=== PATIENT | female | born 1975 | race African-American/Black ===

== ENCOUNTER 2017-07-05 05:06 | Emergency (ER) | payer SELFPAY ==
[2017-07-05] MEDS ORDERED: LEVALBUTEROL 1.25 MG/3 ML NEB ONE (05:11)
[2017-07-05] MEDS ORDERED: predniSONE 20 MG TAB ONE (05:11)
--- NOTE | 2017-07-05 05:12 | EDPHYS ---
Physician Documentation [facility] Name: Angelique Alvarez Age: 41 yrs Sex: Female : 1975 Arrival Date: 07/05/2017 Time: 05:07 Bed 6 Private MD: ED Physician Aristeo Toure HPI: 07/05 05:14 This 41 yrs old Black Female presents to ER via EMS with complaints of Respiratory kdr Distress. 05:14 The patient has shortness of breath at rest, with light activity. Onset: The kdr symptoms/episode began/occurred suddenly, today. Duration: The symptoms are intermittent, with no pattern. The patient's shortness of breath is aggravated by coughing, exertion, light activity, is alleviated by nothing. Associated signs and symptoms: Pertinent positives: productive cough, vomiting, Post tussive vomiting. Severity of symptoms: At their worst the symptoms were mild in the emergency department the symptoms have resolved. The patient has experienced similar episodes in the past, several times. The patient has not recently seen a physician. EMS was called to the patient's residence earlier but she refused transport after receiving a neb treatment. She states that she awoke from sleep with recurrence of her coughing and SOB. 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 - Social history:: Smoking status: Patient uses tobacco products, denies chronic smoking, but will smoke occasionally. ROS: 05:14 Constitutional: Negative for fever, chills, and weight loss, Eyes: Negative for injury, kdr pain, redness, and discharge, ENT: Negative for injury, pain, and discharge, Neck: Negative for injury, pain, and swelling, Cardiovascular: Negative for chest pain, palpitations, and edema, Abdomen/GI: Negative for abdominal pain, nausea, vomiting, diarrhea, and constipation, Back: Negative for injury and pain, : Negative for injury, bleeding, discharge, and swelling, MS/Extremity: Negative for injury and deformity, Skin: Negative for injury, rash, and discoloration, Neuro: Negative for headache, weakness, numbness, tingling, and seizure activity. Psych: Negative for depression, anxiety, suicide ideation, homicidal ideation, and hallucinations, Allergy/Immunology: Negative for hives, rash, and allergies, Endocrine: Negative for neck swelling, polydipsia, polyuria, polyphagia, and marked weight changes, Hematologic/Lymphatic: Negative for swollen nodes, abnormal bleeding, and unusual bruising. 05:14 Respiratory: Positive for cough, with clear sputum, dyspnea on exertion, shortness of breath, on exertion. wheezing, inspiratory, expiratory. Exam: 05:14 Constitutional: This is a well developed, well nourished patient who is awake, alert, kdr and in no acute distress. Head/Face: Normocephalic, atraumatic. Eyes: Pupils equal round and reactive to light, extra-ocular motions intact. Lids and lashes normal. Conjunctiva and sclera are non-icteric and not injected. Cornea within normal limits. Periorbital areas with no swelling, redness, or edema. Neck: Trachea midline, no thyromegaly or masses palpated, and no cervical lymphadenopathy. Supple, full range of motion without nuchal rigidity, or vertebral point tenderness. No Meningismus. Chest/axilla: Normal chest wall appearance and motion. Nontender with no deformity. No lesions are appreciated. Cardiovascular: Regular rate and rhythm with a normal S1 and S2. No gallops, murmurs, or rubs. Normal PMI, no JVD. No pulse deficits. Abdomen/GI: Soft, non-tender, with normal bowel sounds. No distension or tympany. No guarding or rebound. No evidence of tenderness throughout. Back: No spinal tenderness. No costovertebral tenderness. Full range of motion. Skin: Warm, dry with normal turgor. Normal color with no rashes, no lesions, and no evidence of cellulitis. MS/ Extremity: Pulses equal, no cyanosis. Neurovascular intact. Full, normal range of motion. Neuro: Awake and alert, GCS 15, oriented to person, place, time, and situation. Cranial nerves II-XII grossly intact. Motor strength 5/5 in all extremities. Sensory grossly intact. Cerebellar exam normal. Normal gait. Psych: Awake, alert, with orientation to person, place and time. Behavior, mood, and affect are within normal limits. 05:14 Respiratory: the patient does not display signs of respiratory distress, Respirations: normal, Breath sounds: wheezing: that is mild, is scattered, is heard diffusely, Respiratory rate: 20 Vital Signs: 04:55 BP 148 / 108; Pulse 89; Resp 20; Temp 97.8(O); Pulse Ox 100% on R/A; Weight 52.16 kg fc (R); Height 5 ft. 2 in. (157.48 cm) (R); Pain 4/10; 05:50 BP 149 / 95; Pulse 80; Resp 18; Temp 97.7(O); Pulse Ox 100% on R/A; Pain 0/10; ea 04:55 Body Mass Index 21.03 (52.16 kg, 157.48 cm) fc MDM: 05:11 Patient medically screened. kdr 05:14 Data reviewed: vital signs, nurses notes. Counseling: I had a detailed discussion with kdr the patient and/or guardian regarding: the historical points, exam findings, and any diagnostic results supporting the discharge/admit diagnosis, the need for outpatient follow up. Administered Medications: 05:20 Drug: predniSONE 40 mg Route: PO; ea 05:45 Follow up: Response: No adverse reaction; Wheezing diminished ea 05:21 Drug: Xopenex (3) 1.25 mg Route: Inhalation; ea Disposition: 07/05/17 05:11 Discharged to Home. Impression: Shortness of breath, Asthma, Cough. - Condition is Stable. - Discharge Instructions: Shortness of Breath, [id number], Asthma, Adult, [id number], Cough, Adult, Hytz-hu-Nnem, Asthma Attack Prevention. - Prescriptions for Albuterol Sulfate 2.5 mg /3 mL (0.083 %) Inhalation Solution for Nebulization - inhale 1 unit by NEBULIZATION route every 8 hours As needed; 1 box. Medrol (Jeovanny) 4 mg Oral Tablets, Dose Pack - take 1 tablet by ORAL route as directed - follow package instructions; 1 packet. Albuterol Sulfate 90 mcg/actuation - inhale 1-2 puff by INHALATION route every 4-6 hours; 1 Inhaler. - Medication Reconciliation Form, Thank You Letter, Antibiotic Education, Prescription Opioid Use form. - Follow up: Private Physician; When: 2 - 3 days; Reason: If symptoms return, Further diagnostic work-up, Recheck today's complaints, Continuance of care, Re-evaluation by your physician. - Problem is an acute exacerbation. - Symptoms have improved. Signatures: Aristeo Toure MD MD kdr Chretien, Felicia RN RN Connie Lagos RN RN ea
--- NOTE | 2017-07-05 05:12 | ER ---
Nurse's Notes [facility] Name: Angelique Alvarez Age: 41 yrs Sex: Female : 1975 Arrival Date: 07/05/2017 Time: 05:07 Bed 6 Private MD: Diagnosis: Shortness of breath;Asthma;Cough Presentation: 07/05 04:55 Presenting complaint: EMS states: that pt is having resp distress and wheezing to all fc lobes. Pt having cough and congestion with clear sputum. Upon their arrival to her home sats were 92% on room air. Pt is currently out of her medications (Inhaler and Nebs). Transition of care: patient was not received from another setting of care. Onset of symptoms was July 05, 2017. Initial Sepsis Screen: Does the patient meet any 2 criteria? No. Patient's initial sepsis screen is negative. Does the patient have a suspected source of infection? No. Patient's initial sepsis screen is negative. Care prior to arrival: Medication(s) given: Albuterol Neb x 1, Atrovent Neb x 1. 04:55 Method Of Arrival: EMS: [facility] 04:55 Acuity: JAMES 4 Triage Assessment: 05:09 General: Appears uncomfortable, Behavior is calm, cooperative, appropriate for age. ea Respiratory: Reports shortness of breath cough that is productive, Onset: The symptoms/episode began/occurred this morning, the patient has mild shortness of breath. 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 - Social history:: Smoking status: Patient uses tobacco products, denies chronic smoking, but will smoke occasionally. Screenin:09 Fall Risk None identified. ea 05:11 Abuse screen: Denies threats or abuse. Nutritional screening: No deficits noted. fc Tuberculosis screening: No symptoms or risk factors identified. Assessment: 05:09 General: Appears uncomfortable, Behavior is calm, cooperative, appropriate for age. ea Pain: Complains of pain in left lateral posterior chest and right lateral posterior chest Pain currently is 4 out of 10 on a pain scale. Quality of pain is described as aching, Aggravated by coughing. Neuro: Level of Consciousness is awake, alert, obeys commands, Oriented to person, place, time, situation. Cardiovascular: Heart tones S1 S2 present Patient's skin is warm and dry. Respiratory: Airway is patent Respiratory effort is labored, Respiratory pattern is regular, symmetrical, Breath sounds with wheezes bilaterally. in right upper lobe, left upper lobe, left posterior upper lobe, right posterior upper lobe, left posterior lower lobe and right posterior middle lobe. Respiratory: Parent/caregiver reports the patient having cough that is productive. GI: No signs and/or symptoms were reported involving the gastrointestinal system. : No signs and/or symptoms were reported regarding the genitourinary system. EENT: EENT: No signs and/or symptoms were reported regarding the EENT system. Derm: Skin is intact, Skin is dry, Skin is normal, Skin temperature is warm. Musculoskeletal: Circulation, motion, and sensation intact. 05:49 Reassessment: Patient and/or family updated on plan of care and expected duration. Pain ea level reassessed. Patient is alert, oriented x 3, equal unlabored respirations, skin warm/dry/pink. Discharge instructions given to patient verbalized the understanding of instruction. Patient states feeling better. Patient states symptoms have improved. Vital Signs: 04:55 BP 148 / 108; Pulse 89; Resp 20; Temp 97.8(O); Pulse Ox 100% on R/A; Weight 52.16 kg fc (R); Height 5 ft. 2 in. (157.48 cm) (R); Pain 4/10; 05:50 BP 149 / 95; Pulse 80; Resp 18; Temp 97.7(O); Pulse Ox 100% on R/A; Pain 0/10; ea 04:55 Body Mass Index 21.03 (52.16 kg, 157.48 cm) ED Course: 04:55 Arm band placed on Patient placed in an exam room, on a stretcher. 05:07 Patient arrived in ED. fc 05:08 Connie Elise RN is Primary Nurse. ea 05:09 Aristeo Toure MD is Attending Physician. kdr 05:10 Triage completed. fc 05:11 Patient has correct armband on for positive identification. Bed in low position. Call light in reach. Side rails up X 1. Pulse ox on. NIBP on. 05:11 No provider procedures requiring assistance completed. fc 05:52 Patient did not have IV access during this emergency room visit. ea Administered Medications: 05:20 Drug: predniSONE 40 mg Route: PO; ea 05:45 Follow up: Response: No adverse reaction; Wheezing diminished ea 05:21 Drug: Xopenex (3) 1.25 mg Route: Inhalation; ea Outcome: 05:11 Discharge ordered by . kdr 05:51 Discharged to home ambulatory. ea 05:51 Condition: improved 05:51 Discharge instructions given to patient, Instructed on discharge instructions, follow up and referral plans. medication usage, Demonstrated understanding of instructions, follow-up care, medications, Prescriptions given X 3. 05:53 Patient left the ED. ea Signatures: Aristeo Toure MD MD [facility] Anne Hudson RN RN Connie Elise RN RN ea Corrections: (The following items were deleted from the chart) 05:17 05:09 Musculoskeletal: Range of motion: intact in all extremities, ea ea
[2017-07-05 06:05] VITALS: BP 149/95; TEMP 97.7; O2SAT 100
== END 2017-07-05 05:53 | disposition home or self-care (01) ==
LOC: ER 05:06
DX: J45.909 Unspecified asthma, uncomplicated (principal); R05 Cough; J44.9 Chronic obstructive pulmonary disease, unspecified; Z72.0 Tobacco use; Z88.0 Allergy status to penicillin
CPT/HCPCS: 99284; J7512

== ENCOUNTER 2017-08-04 10:04 | Observation (INO) | payer SELFPAY ==
[~2017-08-04 10:04] MED LIST: ALBUTEROL 2.5 MG/3 ML NEB SOL ONE; IPRATROPIUM BROM 0.5MG/2.5ML ONE; METHYLPREDNISOLONE 125 MG INJ ONE
[2017-08-04] MEDS ORDERED: Magnesium Sulfate 2gm IVPB 2 G/50 ML BAG IV ONE (10:09)
[2017-08-04] MEDS ORDERED: NA CHLORIDE 0.9% 1,000 ML ONE (10:10)
[2017-08-04 10:27] LABS: Absolute Lymphocytes (CBC) 1.8 K/uL (0.7-4.9); Absolute Monocytes 0.8 K/uL (0.1-1.3); Absolute Neutrophil 2.2 K/uL (1.8-8.0); Basophils % 0.8 % (0-1.3); Eosinophils % 14.2 % (0-4.4); Hematocrit 36.1 % (36.0-45.0); Lymphocytes % 31.2 % (15.3-44.8); MCH 27.7 pg (27.0-35.0); MCV 87.2 fL (80-100); Monocytes % 14.7 % (3.3-12.3); RBC Red Blood Cell Count 4.14 M/uL (3.86-4.86)
[2017-08-04 10:34] LABS: Bicarbonate 26 mEq/L (21-31); Glucose Level 94 mg/dL (65-120); Potassium 4.1 mEq/L (3.6-5.0); Sodium Level 139 mEq/L (135-145)
[2017-08-04 10:35] LABS: BUN Blood Urea Nitrogen 8 mg/dL (6-20)
--- NOTE | 2017-08-04 11:19 | RAD REPORT ---
EXAM DESCRIPTION: RAD - Chest Single View - 08/04/2017 10:39 am CLINICAL HISTORY: Dyspnea COMPARISON: None. TECHNIQUE: AP portable chest image was obtained 1029 hours . FINDINGS: No peripheral mass, consolidation or failure. No peribronchial thickening. Minimal promine nce of the interstitial markings noted. Baseline for the patient is unknown. Heart and vasculature ar e normal. No measurable pleural effusion and no pneumothorax. No acute bone findings seen. Patient bynum s a pronounced thoracolumbar scoliosis. No acute aortic findings suspected. IMPRESSION: No focal infiltrate, mass or failure finding. Mild prominence of the interstitial markings present suspected to be baseline for the patient.
--- NOTE | 2017-08-04 11:39 | EDPHYS ---
Physician Documentation [facility] Name: Angelique Alvarez Age: 41 yrs Sex: Female : 1975 Arrival Date: 08/04/2017 Time: 10:07 Bed 5 Private MD: ED Physician Aristeo Toure HPI: 08/04 11:31 This 41 yrs old Black Female presents to ER via EMS with complaints of Shortness Of jr8 Breath. 11:31 The patient has shortness of breath at rest. Onset: The symptoms/episode began/occurred jr8 acutely, yesterday, and became worse and became persistent. Duration: The symptoms are continuous. The patient's shortness of breath is aggravated by talking, walking. Associated signs and symptoms: The patient has no apparent associated signs or symptoms. Severity of symptoms: At their worst the symptoms were moderate in the emergency department the symptoms are unchanged. The patient has experienced similar episodes in the past, a few times. The patient has not recently seen a physician. 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 - Ebola Screening: : Patient denies travel to an Ebola-affected area in the 21 days before illness onset. - Social history:: Smoking status: . ROS: 11:31 Eyes: Negative for injury, pain, redness, and discharge, ENT: Negative for injury, jr8 pain, and discharge, Neck: Negative for injury, pain, and swelling, Cardiovascular: Negative for chest pain, palpitations, and edema, Abdomen/GI: Negative for abdominal pain, nausea, vomiting, diarrhea, and constipation, Back: Negative for injury and pain, MS/Extremity: Negative for injury and deformity, Skin: Negative for injury, rash, and discoloration, Neuro: Negative for headache, weakness, numbness, tingling, and seizure. 11:31 Respiratory: Positive for cough, dyspnea on exertion, shortness of breath, wheezing. Exam: 11:31 Eyes: Pupils equal round and reactive to light, extra-ocular motions intact. Lids and jr8 lashes normal. Conjunctiva and sclera are non-icteric and not injected. Cornea within normal limits. Periorbital areas with no swelling, redness, or edema. ENT: Nares patent. No nasal discharge, no septal abnormalities noted. Tympanic membranes are normal and external auditory canals are clear. Oropharynx with no redness, swelling, or masses, exudates, or evidence of obstruction, uvula midline. Mucous membranes moist. Neck: Trachea midline, no thyromegaly or masses palpated, and no cervical lymphadenopathy. Supple, full range of motion without nuchal rigidity, or vertebral point tenderness. No Meningismus. Abdomen/GI: Soft, non-tender, with normal bowel sounds. No distension or tympany. No guarding or rebound. No evidence of tenderness throughout. Back: No spinal tenderness. No costovertebral tenderness. Full range of motion. Skin: Warm, dry with normal turgor. Normal color with no rashes, no lesions, and no evidence of cellulitis. MS/ Extremity: Pulses equal, no cyanosis. Neurovascular intact. Full, normal range of motion. Neuro: Awake and alert, GCS 15, oriented to person, place, time, and situation. Cranial nerves II-XII grossly intact. Motor strength 5/5 in all extremities. Sensory grossly intact. Cerebellar exam normal. Normal gait. 11:31 Cardiovascular: Rate: tachycardic, Rhythm: regular, Pulses: Pulses are 2+ in right radial artery and left radial artery. Heart sounds: normal, normal S1and S2, no S3 or S4, no murmur, no rub, no gallop, Edema: is not appreciated, JVD: is not appreciated. 11:31 Respiratory: moderate respiratory distress is noted, Respirations: labored breathing, accessory muscle usage, tachypnea, Breath sounds: wheezing: expiratory that is moderate, is heard diffusely. Vital Signs: 10:10 BP 161 / 102; Pulse 115; Resp 24; Temp 97.8(TE); Pulse Ox 99% on Nebulizer Mask; tw2 10:14 BP 177 / 98; Pulse 113; Resp 24; Pulse Ox 99% on BiPAP; tw2 10:38 BP 157 / 98; Pulse 100; Resp 24; Pulse Ox 100% on 60% BiPAP; ae1 11:39 BP 139 / 92; Pulse 106; Resp 26; Pulse Ox 100% on 60% BiPAP; ae1 12:20 BP 142 / 92; Pulse 93; Resp 22; Pulse Ox 100% on 60% BiPAP; ae1 12:54 BP 136 / 95; Pulse 88; Resp 15; Pulse Ox 100% on 60% BiPAP; ae1 10:14 12/6 rate 14, FIO2 -60 tw2 MDM: 10:08 Patient medically screened. 8 11:37 Data reviewed: vital signs, nurses notes, lab test result(s), radiologic studies, plain jr8 films, and as a result, I will admit patient. Data interpreted: Pulse oximetry: on room air is 100 %. Interpretation: normal. Counseling: I had a detailed discussion with the patient and/or guardian regarding: the historical points, exam findings, and any diagnostic results supporting the discharge/admit diagnosis, lab results, radiology results, the need for further work-up and treatment in the hospital. 08/04 10:09 Order name: CBC with Diff; Complete Time: 10: [facility] 08/04 10:09 Order name: Basic Metabolic Panel; Complete Time: [facility] 08/04 10:09 Order name: XRAY Chest (1 view); Complete Time: 11:28 [facility] 08/04 10:09 Order name: BIPAP [facility] 08/04 11:23 Order name: Urine Dipstick--Ancillary (enter results); Complete Time: 12:06 08/04 11:23 Order name: Urine --Ancillary (enter results); Complete Time: 12:06 08/04 10:08 Order name: IV; Complete Time: 10:10 [facility] Administered Medications: 10:08 Drug: SOLU-Medrol 125 mg Route: IVP; Site: right antecubital; tw2 12:22 Follow up: Response: No adverse reaction ae1 10:08 Drug: Albuterol - atroVENT (3:1) (2.5 mg - 0.5 mg) 3 ml Route: Nebulizer; tw2 12:22 Follow up: Response: Wheezing diminished ae1 10:12 Drug: NS 0.9% 1000 ml Route: IV; Rate: 100 ml/hr; Site: right antecubital; ae1 13:00 Follow up: IV Status: Infusion continued upon admission ae1 10:12 Drug: Magnesium Sulfate 2 grams Route: IVPB; Infused Over: 2 hrs; Site: right ae1 antecubital; 12:22 Follow up: IV Status: Completed infusion ae1 Disposition: 16:49 Co-signature as Attending Physician, Aristeo Toure MD I agree with the assessment and kdr plan of care. Disposition: 08/04/17 11:38 Hospitalization ordered by Samia Pennington for Observation. Preliminary diagnosis is Chronic obstructive pulmonary disease with (acute) exacerbation. - Bed requested for Telemetry/MedSurg (observation). - Status is Observation. ae1 - Condition is Stable. - Problem is new. - Symptoms have improved. UTI on Admission? No Signatures: Dispatcher [employer] EDMS Dia Marcano Kevin, MD MD [facility] Dereje Valdes PA PA jr8 Maryan Wan RN RN tw2 Guille Hastings RN RN ae1 Corrections: (The following items were deleted from the chart) 12:37 11:38 Hospitalization Ordered by Samia Pennington MD for Observation. Preliminary bd diagnosis is Chronic obstructive pulmonary disease with (acute) exacerbation. Bed requested for Telemetry/MedSurg (observation). Status is Observation. Condition is Stable. Problem is new. Symptoms have improved. UTI on Admission? No. jr8 13:15 12:37 08/04/2017 11:38 Hospitalization Ordered by Samia Pennington MD for Observation. ae1 Preliminary diagnosis is Chronic obstructive pulmonary disease with (acute) exacerbation. Bed requested for Telemetry/MedSurg (observation). Status is Observation. Condition is Stable. Problem is new. Symptoms have improved. UTI on Admission? No. bd
--- NOTE | 2017-08-04 11:39 | ER ---
Nurse's Notes [facility] Name: Angelique Alvarez Age: 41 yrs Sex: Female : 1975 Arrival Date: 08/04/2017 Time: 10:07 Bed 5 Private MD: Diagnosis: Chronic obstructive pulmonary disease with (acute) exacerbation Presentation: 08/04 10:14 Risk Assessment: Do you want to hurt yourself or someone else? Patient reports no tw2 desire to harm self or others. Initial Sepsis Screen: Does the patient meet any 2 criteria? RR > 20 per min. Does the patient have a suspected source of infection? No. Patient's initial sepsis screen is negative. Care prior to arrival: Medication(s) given: Albuterol Neb x 1, Oxygen administered. via nasal cannula, at 3L. 10:17 Presenting complaint: EMS states: pt c/o SOB out of prednisone, has inhaler, started tw2 last night. Transition of care: patient was not received from another setting of care. Onset of symptoms was August 04, 2017. 10:17 Method Of Arrival: EMS: [facility] tw2 10:22 Acuity: JAMES 2 ae1 Triage Assessment: 10:18 General: Appears uncomfortable, slender, Behavior is anxious. Pain: Denies pain. tw2 Respiratory: Reports shortness of breath at rest Onset: The symptoms/episode began/occurred yesterday, the patient has severe shortness of breath. 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 - Ebola Screening: : Patient denies travel to an Ebola-affected area in the 21 days before illness onset. - Social history:: Smoking status: . Screenin:13 Abuse screen: Denies threats or abuse. Nutritional screening: No deficits noted. tw2 Tuberculosis screening: No symptoms or risk factors identified. Fall Risk None identified. Assessment: 10:14 Reassessment: pt placed on BIPAP at this time. tw2 10:19 General: Appears distressed, uncomfortable, slender, well groomed, Behavior is ae1 cooperative, agitated, anxious, restless. Pain:. Neuro: Level of Consciousness is awake, alert, obeys commands, Oriented to person, place, time, situation. Cardiovascular: Heart tones S1 S2 present Patient's skin is warm and dry. Rhythm is regular. Respiratory: Airway is patent Respiratory effort is even, labored, gasping, with retractions, shallow, using tripod position, Respiratory pattern is regular, symmetrical, tachypnea Breath sounds with wheezes bilaterally. GI: No signs and/or symptoms were reported involving the gastrointestinal system. : No signs and/or symptoms were reported regarding the genitourinary system. EENT: No signs and/or symptoms were reported regarding the EENT system. Derm: Skin is normal. Musculoskeletal: No deficits noted. 10:34 Respiratory: Airway is patent Respiratory effort is even, Mildly labored. ae1 11:02 Reassessment: Assisted patient onto bedside commode to urinate, obtained urine sample ae1 at this time. patient remained on Bipap machine and tolerated well. 12:21 Reassessment: Patient and/or family updated on plan of care and expected duration. Pain ae1 level reassessed. Additional warm blankets provided, patient appears less labored. Patient states symptoms have improved. 12:45 Reassessment: Called , Sunny, per patient to inform that patient will ae1 be admitted. states he will be on his way shortly. 13:10 Reassessment: Called report to Bailey, receiving nurse via telephone. ae1 Vital Signs: 10:10 BP 161 / 102; Pulse 115; Resp 24; Temp 97.8(TE); Pulse Ox 99% on Nebulizer Mask; tw2 10:14 BP 177 / 98; Pulse 113; Resp 24; Pulse Ox 99% on BiPAP; tw2 10:38 BP 157 / 98; Pulse 100; Resp 24; Pulse Ox 100% on 60% BiPAP; ae1 11:39 BP 139 / 92; Pulse 106; Resp 26; Pulse Ox 100% on 60% BiPAP; ae1 12:20 BP 142 / 92; Pulse 93; Resp 22; Pulse Ox 100% on 60% BiPAP; ae1 12:54 BP 136 / 95; Pulse 88; Resp 15; Pulse Ox 100% on 60% BiPAP; ae1 10:14 12/6 rate 14, FIO2 -60 tw2 ED Course: 10:07 Patient arrived in ED. tw2 10:08 Dereje Valdes PA is PHCP. jr8 10:08 Aristeo Toure MD is Attending Physician. jr8 10:10 Maryan Wan RN is Primary Nurse. tw2 10:18 Triage completed. tw2 10:18 Bed in low position. Call light in reach. Pulse ox on. NIBP on. tw2 10:18 Arm band placed on. tw2 10:18 No provider procedures requiring assistance completed. Inserted saline lock: 20 gauge tw2 in right antecubital area, using aseptic technique. ,using aseptic technique. per SERA Hurd Blood collected. 10:39 XRAY Chest (1 view) In Process Unspecified. EDMS 10:39 X-ray completed. Portable x-ray completed in exam room. Patient tolerated procedure kp1 well. 11:37 Samia Pennington MD is Hospitalizing Provider. jr8 13:14 Patient admitted, IV remains in place. ae1 Administered Medications: 10:08 Drug: SOLU-Medrol 125 mg Route: IVP; Site: right antecubital; tw2 12:22 Follow up: Response: No adverse reaction ae1 10:08 Drug: Albuterol - atroVENT (3:1) (2.5 mg - 0.5 mg) 3 ml Route: Nebulizer; tw2 12:22 Follow up: Response: Wheezing diminished ae1 10:12 Drug: NS 0.9% 1000 ml Route: IV; Rate: 100 ml/hr; Site: right antecubital; ae1 13:00 Follow up: IV Status: Infusion continued upon admission ae1 10:12 Drug: Magnesium Sulfate 2 grams Route: IVPB; Infused Over: 2 hrs; Site: right ae1 antecubital; 12:22 Follow up: IV Status: Completed infusion ae1 Outcome: 11:38 Decision to Hospitalize by Provider. jr8 12:56 Condition: stable ae1 13:00 Instructed on the need for admit, Demonstrated understanding of instructions. ae1 13:14 Admitted to Tele accompanied by tech, via wheelchair, room 409, with oxygen, with ae1 chart, Report called to Bailey, receiving nurse. 13:15 Patient left the ED. ae1 Signatures: Dispatcher [employer] EDMS Dereje Valdes PA PA jr8 Maryan Wan RN RN tw2 Guille Hastings RN RN ae1 Dinorah Buck 1 Corrections: (The following items were deleted from the chart) 10:22 10:17 Acuity: JAMES 3 tw2 tw2
[2017-08-04 11:45] LABS: Urine Blood TRACE (NEG); Urine Glucose NEGATIVE (NEG); Urine Protein NEGATIVE (NEG); Urine Specific Gravity 1.015 (1.005-1.030)
[2017-08-04] MEDS ORDERED: ACETAMINOPHEN 500 MG TAB PO PRN (11:51)
[2017-08-04] MEDS ORDERED: ONDANSETRON 4 MG/2 ML VIAL IV PRN (11:51)
[2017-08-04 13:21] VITALS: O2SAT 100
[2017-08-04 13:54] VITALS: BP 137/86; TEMP 98.5
[2017-08-04] MEDS ORDERED: IPRATROPIUM BROM 0.5MG/2.5ML NEB SCH (14:00)
[2017-08-04] MEDS ORDERED: ALBUTEROL 2.5 MG/3 ML NEB SOL NEB SCH ×2 (14:00→20:00)
[2017-08-04 14:07] VITALS: BMI 20.7
[2017-08-04] MEDS ORDERED: DULERA 200/5 (MOMETASONE/FORMOTEROL) INHALER IH SCH (14:49)
--- NOTE | 2017-08-04 14:49 | P.CNS ---
Date of Consult: 08/05/17 Reason for Consult: COPD exacerbation Chief Complaint: Coughing and shortness of breath History of Present Illness: Patient is 41 years of age with a history of COPD active smoker became worse yesterday developed increasing cough shortness of breath ended up here in the hospital patient has a nebulizer at home and was in and was taking steroids he feels much better now no other complaints apart from some left-sided chest discomfort from coughing she feels significantly better Allergies esomeprazole [From Nexium] Allergy (Verified 08/04/17 14:18) Hives Penicillins Allergy (Verified 08/04/17 14:16) Shortness of breath Home Medications: Albuterol Sulfate [Proair Hfa] 1 inh IH QIDP PRN 08/04/17 - Past Medical/Surgical History Diabetic: No -: COPD -: Gestational Diabetes -: Bronchitis -: Asthma -: Miscarriage x 2 -: Ceasarian Section x 5 - Family History Sister Notes: Sickle Cell Anemia Brother Medical History: Cancer Notes: Prostate Cancer - Social History Alcohol use: Yes CD- Drugs: No Caffeine use: Yes Place of Residence: Home Review of Systems 10-point ROS is otherwise unremarkable Physical Examination Temp Pulse Resp BP Pulse Ox 98.5 F 103 H 16 137/86 97 08/04/17 13:50 08/04/17 13:50 08/04/17 13:50 08/04/17 13:50 08/04/17 13:50 General: Alert, Oriented x3 HEENT: Atraumatic Neck: Supple Respiratory: Clear to auscultation bilaterally Cardiovascular: No edema, Regular rate/rhythm Laboratory Data (last 24 hrs) 08/04/17 10:11: Sodium 139, Potassium 4.1, BUN 8, Creatinine 0.64, Glucose 94 08/04/17 10:11: WBC 5.7, Hgb 11.5 L, Hct 36.1, Plt Count 363 - Problems (1) COPD exacerbation Current Visit: Yes Status: Acute Plan: Patient is 41 years of age with a history of COPD active smoker admitted with worsening cough shortness of breath she is stable patient can be discharged home on prednisone 10 mg twice a day for 10 days in addition to [place] 202 puffs twice a day patient to follow up in my office in about 2 weeks now be able to prescribe her some inhalers been console not to smoke re-did unremarkable check room air pulse ox
--- NOTE | 2017-08-04 15:12 | P.SSS ---
Patient History Date of Service: 08/04/17 Primary Care Provider: None Reason for admission: Coughing and shortness of breath History of Present Illness: This is a 41-year-old female with significant past medical COPD who presented to the ED complaining of having some increasing cough and SOB has gotten progressively worse. Pt is a active smoker who smokes 1 pack a day. Patient has a nebulizer at home, However, did not use it this time. pt states she has been having COPD for a while but the acute symptoms started 2 to 3 days. Patient denies having any fever chills nausea vomiting along with the associated symptoms. Patient stated that aside from the above-mentioned symptoms she did not have any other problems. In the ER patient was found to have COPD exacerbation was initially put on BiPAP and medicine team was consulted to admit the patient for further care. Patient did receive DuoNeb treatment done in the ER along with steroids and magnesium sulfate. Patient did have marked improvement however patient needed to be observed in the hospital and get a pulmonology consult. Patient will be discharged later on today once pulmonology has seen the patient and patient is no longer on BiPAP and can be successfully weaned to room air. Allergies esomeprazole [From Nexium] Allergy (Verified 08/04/17 14:18) Hives Penicillins Allergy (Verified 08/04/17 14:16) Shortness of breath Home Medications: Albuterol Sulfate [Proair Hfa] 1 inh IH QIDP PRN 08/04/17 Fluticasone/Salmeterol [Airduo Respiclick [id number] Mcg] 2 puff IH BID #1 aer.[email or web address] 08/04/17 Prednisone [Sterapred Ds] 10 mg PO DIRECTED #1 tab.ds.pk 08/04/17 - Past Medical/Surgical History Diabetic: No -: COPD -: Gestational Diabetes -: Bronchitis -: Asthma -: Miscarriage x 2 -: Ceasarian Section x 5 - Family History Sister Notes: Sickle Cell Anemia Brother -: Cancer Notes: Prostate Cancer - Social History Smoking Status: Current every day smoker Alcohol use: Yes CD- Drugs: No Caffeine use: Yes Place of Residence: Home Review of Systems General: As per HPI Physical Examination - Vital Signs Temperature: 98.5 F Blood Pressure: 137/86 Pulse: 103 Respirations: 16 Pulse Ox (%): 97 - Physical Exam General: Alert, In no apparent distress HEENT: Atraumatic, PERRLA, Mucous membr. moist/pink, EOMI, Sclerae nonicteric Neck: Supple, 2+ carotid pulse no bruit, No LAD, Without JVD or thyroid abnormality Respiratory: Normal air movement, Expiratory wheezes, Inspiratory wheezes Cardiovascular: Regular rate/rhythm, Normal S1 S2 Gastrointestinal: Normal bowel sounds, No tenderness Musculoskeletal: No tenderness Integumentary: No rashes Neurological: Normal gait, Normal speech, Normal strength at 5/5 x4 extr, Normal tone, Normal affect Lymphatics: No axilla or inguinal lymphadenopathy - Studies Laboratory Data (last 24 hrs) 08/04/17 10:11: Sodium 139, Potassium 4.1, BUN 8, Creatinine 0.64, Glucose 94 08/04/17 10:11: WBC 5.7, Hgb 11.5 L, Hct 36.1, Plt Count 363 - Diagnosis (Problem(s)) (1) COPD exacerbation Current Visit: Yes Status: Acute Plan: Acute exacerbation most likely 2.2 to smoking -Duonebs, Steriods and Oxygen -Pulmonology consulted. DC home today if doing well and weaned to RA. -Will provide PPX for Steroids and Inhalers. (2) Tobacco abuse Current Visit: Yes Status: Chronic - Disposition Disposition: ROUTINE DISCHARGE Condition: GOOD Patient Discharge Instructions: Please f.u with Dr Estrada in 1 to 2 week post discharge. New medication. Prednisone dose pack. Airduo 2 Puff BID Diet: Regular Activity: Ad jyoti
[2017-08-05] MEDS ORDERED: ENOXAPARIN 40 MG/0.4 ML SQ SCH (09:00)
== END 2017-08-04 16:47 | disposition home or self-care (01) ==
LOC: ER 10:04 → ERHOLD 11:39 → 4TH 12:59
PROVIDERS: ADMIT Family Medicine; ATTEND Family Medicine
PROC: 5A09357 Assistance with Respiratory Ventilation, Less than 24 Consecutive Hours, Continuous Positive Airway Pressure (ICD-10-PCS; principal; 2017-08-04)
DX: J44.1 Chronic obstructive pulmonary disease with (acute) exacerbation (principal); F17.210 Nicotine dependence, cigarettes, uncomplicated; Z88.0 Allergy status to penicillin
CPT/HCPCS: 36415; 71045; 80048; 81003; 81025; 85025; 94640; 94660; 96361; 96365; 96366; 96375; 99285; G0378; J2930; J3475; J7030; J7606